=== PATIENT | male | born 2000 | race Two or more races ===

== ENCOUNTER 2023-05-28 19:33 | Emergency (ER) | payer MEDICAID ==
[~2023-05-28] VITALS: Ht 177.8 cm; Wt 70.3 kg
[2023-05-28 19:45] VITALS: BP 120/71; TEMP 99.4; O2SAT 97
[2023-05-28 20:38] VITALS: PULSE 83; RESP 16
[2023-05-28] MEDS ORDERED: cefTRIAXone SOD 1,000 MG VL IM ONE (20:45)
[2023-05-28] MEDS ORDERED: DexAMETHasone SOD PHOS 10MG/1ML VIAL INJ IM ONE (20:45)
[2023-05-28] MEDS ORDERED: PRED20TA2 PO (20:50)
[2023-05-28] MEDS ORDERED: BENZ200C64 PO (20:50)
[2023-05-28] MEDS ORDERED: AZITTAB PO (20:50)
[2023-05-28] MEDS ORDERED: DEXT1LOZ10 MT (20:50)
[2023-05-28] MEDS ORDERED: ALBUAER3 IN (20:50)
[2023-05-28] MEDS ORDERED: DexAMETHasone SOD PHOS 10MG/1ML VIAL INJ ONE (20:51)
[2023-05-28] MEDS ORDERED: cefTRIAXone SOD 1,000 MG VL ONE (20:51)
== END 2023-05-28 21:03 | disposition home or self-care (01) ==
LOC: ER 19:33
DX: J03.90 Acute tonsillitis, unspecified (principal); R51.9 Headache, unspecified
CPT/HCPCS: 96372; 99284; J0696; J1100